=== PATIENT | female | born 1985 | race Caucasian/White ===

== ENCOUNTER → 2016-12-18 | Outpatient (CLI) | payer OTHER | LOC: FIMAGING 09:04 | PROVIDERS: ATTEND Advanced Practice Midwife | DX: O36.5930 Maternal care for other known or suspected poor fetal growth, third trimester, not applicable or unspecified (principal); Z3A.30 30 weeks gestation of pregnancy ==

== ENCOUNTER → 2017-01-01 | Outpatient (CLI) | payer OTHER ==
[~2017-01-01] MED LIST: LIDOCAINE 1% 2 ML INJ ONE
== END ==
LOC: FIMAGING 09:34
PROVIDERS: ATTEND Advanced Practice Midwife
DX: O36.5930 Maternal care for other known or suspected poor fetal growth, third trimester, not applicable or unspecified (principal); Z3A.32 32 weeks gestation of pregnancy

== ENCOUNTER → 2017-01-15 | Outpatient (CLI) | payer OTHER | LOC: FIMAGING 09:13 | PROVIDERS: ATTEND Advanced Practice Midwife | DX: O36.5931 Maternal care for other known or suspected poor fetal growth, third trimester, fetus 1 (principal); Z3A.34 34 weeks gestation of pregnancy ==

== ENCOUNTER → 2017-01-29 | Outpatient (CLI) | payer OTHER | LOC: FIMAGING 09:03 | PROVIDERS: ATTEND Advanced Practice Midwife | DX: Z36 Encounter for antenatal screening of mother (principal); O36.5930 Maternal care for other known or suspected poor fetal growth, third trimester, not applicable or unspecified; Z3A.36 36 weeks gestation of pregnancy; O32.1XX0 Maternal care for breech presentation, not applicable or unspecified ==

== ENCOUNTER 2017-02-08 20:42 | Inpatient (IN) | payer OTHER ==
[2017-02-08] MEDS ORDERED: ceFAZolin 2 GM/DEXTROSE 100 ML IV ONE (21:02)
[2017-02-08] MEDS ORDERED: LR 500 ML IV ONE (21:02)
[2017-02-08] MEDS ORDERED: CITRIC ACID/SODIUM CITRATE 30 ML UDCUP PO ONE (21:02)
[2017-02-08 21:28] LABS: % IMMATURE GRANULYOCYTES 1.5 % (0.0-1.1); ABSOLUTE IMMATURE GRANULOCYTES 0.19 10^3/uL (0.00-0.10); ADD DIFF? NO; ADD MORPH? NO; ADD SCAN? NO; ATYPICAL LYMPHOCYTE FLAG 0 (0-99); FRAGMENT RBC FLAG 0 (0-99); HEMATOCRIT 42.5 % (38.0-47.0); HEMOGLOBIN 14.3 g/dL (12.6-16.3); LEFT SHIFT FLG 10 (0-99); LIPEMIA HEMOLYSIS FLAG 80 (0-99); MEAN CELL HEMOGLOBIN 30.6 pg (27.9-34.1); MEAN CELL HEMOGLOBIN CONCENTR. 33.6 g/dL (32.4-36.7); MEAN CELL VOLUME 90.8 fL (81.5-99.8); MEAN PLATELET VOLUME 9.5 fL (8.7-11.7); PLATELET CLUMPS FLAG 10 (0-99); PLATELET COUNT 315 10^3/uL (150-400); RED BLOOD CELL COUNT 4.68 10^6/uL (4.18-5.33); RED CELL DISTRIBUTION WIDTH 12.9 % (11.5-15.2)
[2017-02-08] MEDS ORDERED: LR 1,000 ML IV SCH (21:30)
[2017-02-08] MEDS ORDERED: morphINE PF 5 MG/10 ML INJ ONE (22:09)
[2017-02-08] MEDS ORDERED: fentaNYL 100 MCG/2 ML INJ ONE (23:07)
--- NOTE | 2017-02-08 23:16 | GHP ---
[f rep st] PREOP HISTORY AND PHYSICAL DATE OF ADMISSION: 02/08/2017 DATE OF SURGERY: 02/08/2017. PREOPERATIVE DIAGNOSES: 1. Intrauterine at 37 and 3/7 weeks' gestation. 2. Labor. 3. Nuhfkr-xf-jxzitrgaqv presentation. 4. Intrauterine growth restriction. 5. Gestational diabetes, type A1. INDICATIONS: Patient is a 31-year-old, 2, para 0-0-1-0, who is 37 and 3 /7 weeks' gestation. The patient has had close surveillance in this because of intrauterine growth restriction. Baby was in the 2nd percentile at her anatomy ultrasound, and has had serial growth ultrasounds. Her most recent ultrasound was done at 36 weeks, which showed estimated weight of 4th percentile. She has had normal Dopplers, and she started 2 times a week nonstress testing, and patient began having contractions increasing in frequency and intensity this evening. She arrived to Labor and Delivery, and was having regular contractions, and was 2 cm dilated, 50% effaced, and -2 station. The patient was given IV fluids and continued to have moderate-to- strong regular contractions. Ultrasound was done, which confirmed the baby is in the transverse presentation. Decision was made to proceed with a primary low transverse section. Risks and benefits of the procedure were reviewed with the patient, and the patient was properly consented. MEDICAL HISTORY: History of shingles. MEDICATIONS: vitamins and iron. SURGICAL HISTORY: Cholecystectomy, wisdom tooth extraction, adenoids, adenoidectomy. ALLERGIES: Latex, which causes a rash. 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 She is . She denies tobacco, alcohol, or drug use. FAMILY MEDICAL HISTORY: Noncontributory. OBSTETRICAL/GYNECOLOGIC HISTORY: Menarche age 12. Periods every 35 days, lasting 4 days. She is a 2, para 0-0-1-0. In 09/2015, she had a spontaneous , which was treated with Cytotec. Current has been complicated by intrauterine growth restriction at 20 weeks. She has had serial growth ultrasounds following that, and most recent ultrasound, baby was in the 4th percentile, with normal Doppler. She has had 2 times a week nonstress testing. TORCH titers were negative. Genetic testing was negative. The patient denies any history of any abnormal Pap smears or sexually transmitted diseases. REVIEW OF SYSTEMS: ten point review of systems are negative except pertinent positives mentioned in HPI PHYSICAL EXAMINATION: VITAL SIGNS: Stable. GENERAL APPEARANCE: She is alert and oriented x3. CARDIOVASCULAR: Her heart rate is regular, regular. LUNGS: Clear to auscultation bilaterally. ABDOMEN: Gravid, nondistended, nontender. Size less than dates abdomen. EXTREMITIES: Reveal no calf tenderness or edema. CERVICAL: She is 2-3 cm dilated, 50% effaced, and -2 station, and with an anterior cervix. She is having contractions every 2-3 minutes. heart tracing is category 1. is in a asmlqi-kn-xiqdejoiyg presentation. LABS: Blood type O positive. Antibody screen negative. Rubella immune. GBS is negative. HBsAg negative. HIV negative. Her 50 g glucose was 159. Her 3-hour glucose tolerance test was 76 for fasting, 1-hour was 215, 2- hour was 228, and 3-hour was 162. ASSESSMENT AND PLAN: A 31-year-old, 2, para 0-0-1-0, at 37 and 3/7 weeks' gestation, who presents in ofwmxx-cb-predqbcfng presentation in labor. The patient will undergo a primary low transverse section. Risks and benefits were reviewed with the patient, and patient was properly consented. /[id number]/MODL MTDD
[2017-02-08] MEDS ORDERED: HYDROCODONE/APAP 5/325 TAB PO PRN (23:35)
[2017-02-08] MEDS ORDERED: POLYETHYLENE GLYCOL 3350 17 GM PKT PO PRN (23:35)
[2017-02-08] MEDS ORDERED: ACETAMINOPHEN 325 MG TAB PO PRN (23:35)
[2017-02-08] MEDS ORDERED: BISACODYL 10 MG SUPP PR PRN (23:35)
[2017-02-08] MEDS ORDERED: SIMETHICONE 80 MG TAB CHEW PO PRN (23:35)
[2017-02-08] MEDS ORDERED: DOCUSATE SODIUM 100 MG CAP PO PRN (23:35)
[2017-02-08] MEDS ORDERED: NALOXONE HCL 0.4 MG/ML INJ IVP PRN (23:35)
[2017-02-08] MEDS ORDERED: ONDANSETRON 4 MG/2 ML VIAL IVP PRN (23:35)
[2017-02-08] MEDS ORDERED: MAGNESIUM HYDROXIDE 30 ML UDCUP PO PRN (23:35)
[2017-02-08] MEDS ORDERED: HYDROmorphONE/DILAUDID 6 MG/30 ML PCA IV PRN (23:35)
[2017-02-08] MEDS ORDERED: LACTULOSE 20 GM/30 ML UDCUP PO PRN (23:35)
[2017-02-08] MEDS ORDERED: fentaNYL 100 MCG/2 ML INJ IVP PRN (23:42)
[2017-02-08] MEDS ORDERED: HYDROmorphONE/DILAUDID 1 MG/ML SYR IVP PRN (23:42)
--- NOTE | 2017-02-08 23:43 | OBPROC ---
- Delivery Pre-op Diagnoses: IUP 37 3/7 weeks, breech, labor, IUGR Post-op Diagnoses: same as pre op Procedure: Primary, Low Transverse Surgeon: Nasreen Moreira Chief Vendor Quality: Molly Nash Anesthesiologist: Arthur Giordano Anesthesia: Spinal EBL: 800 - Info A Delivery Date: 02/08/17 Delivery Time: 22:51 Sex of : Female Score (1 Min): 8 Score (5 Min): 9
[2017-02-09] MEDS ORDERED: KETOROLAC 30 MG/1 ML SDV ONE (00:03)
[2017-02-09] MEDS: KETOROLAC 30 MG/1 ML SDV IVP SCH ×4 (00:10→19:25)
--- NOTE | 2017-02-09 06:33 | GOP ---
[f rep st] OPERATIVE REPORT DATE OF OPERATION: 02/08/2017 SURGEON: Nasreen Moreira DO DESK DIRECTOR: HERBER Doty. ANESTHESIA: Spinal with Duramorph. ANESTHESIOLOGIST: Arthur Giordano MD. PREOPERATIVE DIAGNOSIS: 1. Intrauterine at 37-3/7-weeks gestation. 2. Breech presentation. 3. Labor. 4. Intrauterine growth restriction. POSTOPERATIVE DIAGNOSIS: 1. Intrauterine at 37-3/7-weeks gestation. 2. Breech presentation. 3. Labor. 4. Intrauterine growth restriction. PROCEDURE PERFORMED: Primary low transverse section. FINDINGS: 1. Viable female infant in the tank breech presentation, delivered at 10:51 a.m. Apgars were 8 an d 9. 2. Intact placenta with 3-vessel cord. 1. Normal ovaries, uterus, and tubes. ESTIMATED BLOOD LOSS: 800 cc. INDICATIONS: Patient is a 31-year-old, 2, para 0-0-1-0, who is 37-3/7-weeks gestation. Bab y is noted to be in the breech presentation. She has been having serial growth ultrasounds because of IUGR diagnosed at her 20-week ultrasound. At her 20-week ultrasound, her baby was in the 2nd per centile. Her most recent growth ultrasound was at 36 weeks which was 4th percentile. She has had n ormal Dopplers and 2 times a week nonstress testing. The patient had contractions, increasing in fr equency and intensity this evening, and arrived to Labor and Delivery, and was found to be having re gular contractions. status was reassuring. She was 2-3 cm dilated, 50% effaced, and -2 stati on, but the cervix was noted to be anterior. She continued having contractions, but started with ir regular contractions, despite receiving IV fluids. Decision was made to proceed with a primary low transverse section. Risks and benefits of the procedure were reviewed with the patient, an d patient was properly consented. DESCRIPTION OF PROCEDURE: Patient was taken to the operating room with intravenous fluids in place. She was given 2 g of Ancef intravenously. She was then seated on the operating room table where s jose anesthesia was obtained. She was then repositioned into the dorsal supine position with a lef tward tilt, and prepped and draped in the normal sterile fashion after a Anne catheter was placed a nd VenoDynes were placed on her lower extremities. Anesthesia was assessed and found to be adequate . A Pfannenstiel skin incision was then made 2 fingerbreadths above the pubic symphysis. The incis ion was then carried through to the underlying layer of fascia with the Bovie. The fascia was then nicked in the midline and the fascial incision was extended laterally. The superior aspect of the f ascial incision was then grasped with a Purnima, tented up, and the underlying rectus muscle dissecte d off bluntly with the Bovie. Attention was then turned to the inferior aspect of the fascial incis ion, which in a similar fashion, was grasped with the Purnima's, tented up, and the underlying rectus muscle dissected off bluntly with the Bovie. The rectus muscle was then in the midline. The peritoneum was then identified, tented up, and entered sharply with Metzenbaum scissors. The i ncision was extended superiorly and inferiorly with excellent visualization of the bladder. The jorge dder blade was then inserted. The vesicouterine peritoneum was identified, tented up, and entered s harply with the Metzenbaum scissors. The incision was then extended laterally, and a bladder flap w as created digitally. The bladder blade was then reinserted. The uterus was then incised in a low transverse fashion with the scalpel. The uterine incision was extended laterally. Membranes were a rtificially ruptured. A moderate amount of clear fluid was noted. The was noted to be in a breech presentation. The buttocks were then delivered through the incision, the body was rotated, a nd the arms were delivered and the head was delivered without difficulty. Delayed cord clamping was performed for 1 minute. Cord was then clamped x2 and cut, cord blood was obtained, and the infant was handed off to awaiting nurse practitioner. Intact placenta with 3-vessel cord delivere d without difficulty. The uterus was then exteriorized and cleared of all clots and debris. Pitoci n was started. The bladder blade was then reinserted, and ovaries, uterus, and tubes were unremarka ble. The hysterotomy was closed with 0 Vicryl in a running, locked fashion. A second 0 Vicryl stit ch was used to imbricate the uterine incision. The abdomen was then cleared of all clots. The uter us was then returned to the patient's abdomen and again, the hysterotomy remained hemostatic. Perit oneum was then grasped and reapproximated with 3-0 Vicryl in a running fashion. The patient was not ing to have a small amount of discomfort and did request additional pain medicine. She was given IV pain medications at that time. Rectus muscle was then reapproximated in an interrupted stitch. Th e fascia was closed with 0 Vicryl in a running fashion. Subcutaneous tissue was found to be hemosta tic. Subcuticular tissue was reapproximated with 3-0 Vicryl in a running fashion, and the skin was then closed with noemy. Sponge, lap, and needle counts were correct x2. Patient was transported to recovery room in stable condition. /[id number]/MODL
--- NOTE | 2017-02-09 07:46 | OBPROG ---
OBG Progress Note Assessment/Plan: Assessment:pain well managed fair nipples flat inverted ff@u scant rubra lochia incision small discharge to bandage 5x5 cm kwabena minimal dependent swelling hill in place not passing gas as of yet denies questions Plan:po day 1 expectant management 02/09/17 07:44 Subjective: doing well. Denies pain. States feeling itchy at times from the duromorph Objective: 02/09/17 05:30 Patient ABO/Rh O POSITIVE 02/08/17 21:18 Temp Pulse Resp BP Pulse Ox 36.9 C 113 H 16 104/64 92 02/09/17 04:15 02/09/17 04:15 02/09/17 04:15 02/09/17 04:15 02/09/17 04:15 - Physical Exam General Appearance: WD/WN, alert, no apparent distress Respiratory: chest non-tender, lungs clear, normal breath sounds Cardiac/Chest: regular rate, rhythm Abdomen: hypoactive bowel sounds, other (not passing gas as of yet) Extremities: normal range of motion, John's sign (negative bilaterally) DTR- Lower Extremities: Knee (R): 1+, Knee (L): 1+ (no clonus) Skin: normal color, warm/dry Neuro/Psych: no motor/sensory deficits, alert, normal mood/affect, oriented x 3 ICD10 Worksheet Patient Problems: Problems Problem Status Onset Breech presentation Acute delivery delivered Acute
[2017-02-09] MEDS: IRON POLYSAC/IRON HEME 28 MG TAB PO SCH (13:15)
[2017-02-09] MEDS: SENNOSIDES/DOCUSATE SODIUM TAB PO SCH ×3 (18:31→22:17)
[2017-02-10] MEDS: IBUPROFEN 600 MG TAB PO PRN ×4 (01:05→19:30)
[2017-02-10] MEDS: OXYCODONE/APAP 5/325 TAB PO PRN ×5 (02:31→20:43)
[2017-02-10] MEDS: IRON POLYSAC/IRON HEME 28 MG TAB PO SCH (07:22)
[2017-02-10] MEDS: SENNOSIDES/DOCUSATE SODIUM TAB PO SCH ×2 (10:46→22:20)
--- NOTE | 2017-02-10 12:45 | SOAPPROG ---
SOAP Progress Note Assessment/Plan: Assessment: POD 2 s/p primary C/S for breech,, IUGR Plan: Doing well. routine care 02/10/17 12:42 Subjective: Pt doing well. Pain is controlled with one percocet and ibu. bld is light. urinating fine. Working on BF but trying not to get too frustrated - working with - inverted nipples and pumping. Disc increasing fluids. Moving ok Objective: Vital Signs Temp Pulse Resp BP Pulse Ox 36.6 C 97 16 106/76 97 02/10/17 08:00 02/10/17 08:00 02/10/17 08:00 02/10/17 08:00 02/10/17 08:00 Laboratory Results 02/09/17 05:30 02/09/17 02/10/17 02/11/17 05:59 05:59 05:59 Intake Total 1500 Output Total 1750 1775 Balance -250 -1775 Physical Exam - Physical Exam General Appearance: WD/WN Abdomen: non-tender (approp post op tenderness), soft, other (incision CDI, FF at umb -2) Pelvic Exam: vaginal bleeding (normal lochia) Extremities: non-tender, pedal edema (mild) Neuro/Psych: normal mood/affect ICD10 Worksheet Patient Problems: Problems Problem Status Onset Breech presentation Acute delivery delivered Acute
[2017-02-11] MEDS: OXYCODONE/APAP 5/325 TAB PO PRN ×4 (01:08→16:15)
[2017-02-11] MEDS: IBUPROFEN 600 MG TAB PO PRN ×4 (01:08→19:14)
[2017-02-11] MEDS: IRON POLYSAC/IRON HEME 28 MG TAB PO SCH (07:17)
[2017-02-11 10:11] VITALS: RESP 18
[2017-02-11] MEDS: SENNOSIDES/DOCUSATE SODIUM TAB PO SCH ×2 (10:36→21:46)
--- NOTE | 2017-02-11 17:49 | SOAPPROG ---
SOAP Progress Note Assessment/Plan: Assessment: pod# 3 s/p PLTCS for breech in labor breast feeding Plan: routine post operative care staple removal 02/11/17 17:46 Subjective: patient is doing great! pain is well controlled. normal lochia. denies headache and changes in vision. passing gas. had a small bowel movement. breast feeding is going well. Objective: Vital Signs Temp Pulse Resp BP Pulse Ox 36.8 C 100 18 121/88 H 97 02/11/17 09:00 02/11/17 09:00 02/11/17 09:00 02/11/17 09:00 02/11/17 09:00 Laboratory Results 02/09/17 05:30 02/10/17 02/11/17 02/12/17 05:59 05:59 05:59 Output Total 1775 Balance -1775 Physical Exam - Physical Exam General Appearance: WD/WN, alert, no apparent distress Respiratory: chest non-tender, lungs clear, normal breath sounds Cardiac/Chest: normal peripheral pulses, regular rate, rhythm Abdomen: normal bowel sounds, non-tender, soft, other (fundus firm and non tender) Skin: normal color, warm/dry, other (incision clean dry and intact) Extremities: normal range of motion, non-tender, normal inspection, normal capillary refill Neuro/Psych: no motor/sensory deficits, alert, normal mood/affect, oriented x 3 ICD10 Worksheet Patient Problems: Problems Problem Status Onset Breech presentation Acute delivery delivered Acute
[2017-02-12] MEDS: IBUPROFEN 600 MG TAB PO PRN ×2 (02:11→08:22)
[2017-02-12] MEDS: OXYCODONE/APAP 5/325 TAB PO PRN ×2 (02:12→08:22)
[2017-02-12] MEDS: IRON POLYSAC/IRON HEME 28 MG TAB PO SCH (08:22)
[2017-02-12] MEDS: SENNOSIDES/DOCUSATE SODIUM TAB PO SCH (10:37)
[2017-02-12 10:41] VITALS: BP 114/80; TEMP 98.2; O2SAT 96
[2017-02-12 10:42] VITALS: PULSE 95
--- NOTE | 2017-02-12 10:42 | OBPROG ---
OBG Progress Note Assessment/Plan: Assessment: 31 y/o POD #4 s/p LTCS secondary to breech in labor Plan: D/c home today with Rx Percocet and Ibuprofen. Follow-up @ [facility] 2,4, and 6 weeks. Routine POC. 02/12/17 10:42 Subjective: Pt is doing well. She has good pain control with Ibuprofen and 1 Percocet. She is ambulating, voiding well with min lochia. Breast feeding is going well and baby is doing well. They are ready to d/c home. Objective: 02/09/17 05:30 Patient ABO/Rh O POSITIVE 02/08/17 21:18 Temp Pulse Resp BP Pulse Ox 36.6 C 98 18 113/77 98 02/11/17 20:00 02/11/17 20:00 02/11/17 20:00 02/11/17 20:00 02/11/17 20:00 Uterine Position/Fundal Height: Umbilicus -2 Uterine Tone: Firm - Physical Exam General Appearance: WD/WN, alert, no apparent distress Neck: non-tender, full range of motion, supple Respiratory: chest non-tender, lungs clear, normal breath sounds Cardiac/Chest: regular rate, rhythm Abdomen: normal bowel sounds, incision (c/d/i) Extremities: swelling (2+), John's sign (neg) ICD10 Worksheet Patient Problems: Problems Problem Status Onset Breech presentation Acute delivery delivered Acute
== END 2017-02-12 12:05 | disposition home or self-care (01) | DRG 765 ==
LOC: FLD 20:42 → OBSVTOIN 21:02 → FOB 02-09 01:08
PROVIDERS: ADMIT Obstetrics & Gynecology; ATTEND Obstetrics & Gynecology
PROC: 10D00Z1 Extraction of Products of Conception, Low, Open Approach (ICD-10-PCS; principal; 2017-02-08)
DX: O32.1XX0 Maternal care for breech presentation, not applicable or unspecified (principal); Z37.0 Single live birth; O36.5930 Maternal care for other known or suspected poor fetal growth, third trimester, not applicable or unspecified; Z3A.37 37 weeks gestation of pregnancy
CPT/HCPCS: J0690; J1170; J1885; J2274; J3010

== ENCOUNTER → 2017-03-03 | Outpatient (CLI) | payer OTHER | LOC: FLACT 12:55 | PROVIDERS: ATTEND Pediatrics | DX: Z39.1 Encounter for care and examination of lactating mother (principal) | CPT/HCPCS: G0463 ==

== ENCOUNTER → 2017-03-17 | Outpatient (CLI) | payer OTHER | LOC: FLACT 12:12 | PROVIDERS: ATTEND Pediatrics | DX: Z39.1 Encounter for care and examination of lactating mother (principal) | CPT/HCPCS: G0463 ==